=== PATIENT | male | born 1940 | race Caucasian/White ===

== ENCOUNTER 2025-04-24 10:55 | Observation (INO) | payer OTHER ==
[2025-04-24 12:46] LABS: ABSOLUTE IMMATURE GRANULOCYTES 0.04 x10^3/uL (0.0-0.031); BASOPHILS # 0.03 x10^3/uL (0.01-0.08); EOSINOPHIL % 2.3 % (0.8-7.0); EOSINOPHILS # 0.21 x10^3/uL (0.04-0.54); MCHC 32.8 g/dl (32.3-36.5); MEAN CELL VOLUME 101.0 fl (79.0-92.2); MEAN PLT VOLUME 9.6 fl (9.4-12.4); MONOCYTE # 0.84 x10^3/uL (0.30-0.82); MONOCYTE % 9.1 % (5.3-12.2); RDW 14.2 % (12.6-16.6)
[2025-04-24 12:53] LABS: INR 1.19 (0.83-1.09); PROTHROMBIN TIME (PATIENT) 13.1 SEC (9.7-13.0)
[2025-04-24 12:56] LABS: ACTIVATED PTT 25.4 SECONDS (25.2-36.5)
[2025-04-24] MEDS ORDERED: PIPERACILLIN/TAZOB 3.375 GM 3.375 GM/50 ML BAG IVPB ONE (12:59)
[2025-04-24] MEDS ORDERED: VANCOMYCIN 1 GM PREMIX (F) 1 GM/200 ML BAG ONE (12:59)
[2025-04-24] MEDS ORDERED: ACETAMINOPHEN INJECTION 100 ML ONE (12:59)
[2025-04-24 13:07] LABS: GLUCOSE,RANDOM 101.0 mg/dL (74-106); TOT PROT 7.4 g/dl (6.4-8.2)
[2025-04-24] MEDS: ACETAMINOPHEN 1000 MG/100 ML BAG IVPB ONE (13:07)
[2025-04-24 13:08] LABS: CO2 21.0 mmol/L (21-32)
[2025-04-24 13:10] LABS: ALK PHOS 78.0 U/L (40-150)
[2025-04-24 13:12] LABS: SGPT/ALT 30.0 U/L (0-55)
[2025-04-24 13:13] LABS: CREATININE 1.06 mg/dL (0.55-1.3); SGOT/AST 39.0 U/L (5-34)
[2025-04-24] MEDS: PIPERACILLIN/TAZOB 3.375 GM 3.375 GM in DEXTROSE 5%-WATER - 50 ML IVPB ONE (13:13)
[2025-04-24 13:23] LABS: ERYTHROCYTE SEDIMENTATION RATE 106 mm/hr (0-20)
[2025-04-24] MEDS: VANCOMYCIN 1,000 MG in DEXTROSE 5%-WATER - 250 ML IVPB ONE (13:40)
[2025-04-24] MEDS ORDERED: ALBUTEROL SO4 0.083% IH SOL 2.5 MG/3 ML VIAL.NEB. NEB PRN (14:41)
[2025-04-24 15:38] LABS: HCV DIAGNOSTIC IN-HOUSE W/RFLX NON-REACTIVE (NONREACTIVE); HIV INTERPRETATION NEGATIVE (NEGATIVE)
[2025-04-24] MEDS: PIPERACILLIN/TAZOB 3.375 GM 3.375 GM in DEXTROSE 5%-WATER - 50 ML IVPB SCH (18:17)
[2025-04-24] MEDS: ACETAMINOPHEN 325 MG TABLET (FP) PO PRN (18:24)
[2025-04-24 19:16] VITALS: BMI 30.4
[2025-04-24] MEDS: HEPARIN NA (PORCINE) 5,000 UNITS/ML 1ML VIAL SQ SCH (21:18)
[2025-04-24] MEDS: CARVEDILOL 6.25 MG TABLET (FP) PO SCH (21:19)
[2025-04-24] MEDS: MIRTAZAPINE 15 MG TABLET (FP) PO SCH (21:19)
[2025-04-25 08:40] LABS: ABSOLUTE IMMATURE GRANULOCYTES 0.02 x10^3/uL (0.0-0.031); BASOPHILS # 0.03 x10^3/uL (0.01-0.08); EOSINOPHIL % 5.4 % (0.8-7.0); EOSINOPHILS # 0.41 x10^3/uL (0.04-0.54); MCHC 31.7 g/dl (32.3-36.5); MEAN CELL VOLUME 100.7 fl (79.0-92.2); MEAN PLT VOLUME 9.0 fl (9.4-12.4); MONOCYTE # 1.10 x10^3/uL (0.30-0.82); MONOCYTE % 14.4 % (5.3-12.2); RDW 14.2 % (12.6-16.6)
[2025-04-25 09:05] LABS: GLUCOSE,RANDOM 88.0 mg/dL (74-106)
[2025-04-25 09:06] LABS: TOT PROT 6.1 g/dl (6.4-8.2)
[2025-04-25 09:07] LABS: CO2 24.0 mmol/L (21-32)
[2025-04-25 09:08] LABS: ALK PHOS 64.0 U/L (40-150)
[2025-04-25 09:11] LABS: SGOT/AST 24.0 U/L (5-34); SGPT/ALT 22.0 U/L (0-55)
[2025-04-25 09:25] LABS: IRON SERUM 40.0 ug/dL (50-175)
[2025-04-25] MEDS: NIFEdipine E.R. 30 MG TABLET PO SCH (09:45)
[2025-04-25] MEDS: FUROSEMIDE 40 MG TABLET (FP) PO SCH (09:45)
[2025-04-25] MEDS: PANTOPRAZOLE 20 MG TABLET PO SCH (09:45)
[2025-04-25] MEDS: LOSARTAN POTASSIUM 50 MG TABLET PO SCH (09:46)
[2025-04-25 11:08] LABS: CREATININE 1.32 mg/dL (0.55-1.3)
[2025-04-25] MEDS ORDERED: PROPOFOL 20 ML ONE ×2 (12:37→12:43)
[2025-04-25] MEDS ORDERED: LIDOCAINE HCL/PF 2% SDV 5ML VIAL ONE (12:37)
[2025-04-25] MEDS ORDERED: LIDOCAINE HCL 1%, 10 MG/ML (20ML VIAL) ONE (12:49)
[2025-04-25] MEDS: LIDOCAINE HCL 1%, 10 MG/ML (20ML VIAL) INF ONE (13:10)
[2025-04-25] MEDS ORDERED: ONDANSETRON 4 MG/2 ML VIAL IVPUSH PRN ×2 (13:39→14:24)
[2025-04-25] MEDS ORDERED: ALBUTEROL SO4 0.083% IH SOL 2.5 MG/3 ML VIAL.NEB. NEB PRN (14:24)
[2025-04-25] MEDS: LACTATED RINGERS SOLUTION 1,000 ML IV SCH ×2 (15:45→17:39)
[2025-04-25] MEDS: FLUTICASONE/UMECLIDIN/VILANTER(200-62.5-25 TRELEGY ELLIPTA) INAHLER IH SCH (15:45)
[2025-04-25] MEDS: VANCOMYCIN/WATER FOR INJ (PEG) 1,000 MG/200 ML BAG IVPB SCH (17:40)
[2025-04-25] MEDS: PIPERACILLIN/TAZOB 3.375 GM 3.375 GM in DEXTROSE 5%-WATER - 50 ML IVPB SCH (18:05)
[2025-04-25] MEDS: CARVEDILOL 6.25 MG TABLET (FP) PO SCH (23:23)
[2025-04-25] MEDS: HEPARIN NA (PORCINE) 5,000 UNITS/ML 1ML VIAL SQ SCH (23:23)
[2025-04-25] MEDS: ACETAMINOPHEN 325 MG TABLET (FP) PO PRN (23:24)
[2025-04-25] MEDS: MIRTAZAPINE 15 MG TABLET (FP) PO SCH (23:24)
[2025-04-25] MEDS: prednisoLONE ACETATE 1% OPHTH SUSP 5 ML BOTTLE OD SCH (23:25)
[2025-04-26] MEDS ORDERED: PIPERACILLIN/TAZOB 3.375 GM 3.375 GM in DEXTROSE 5%-WATER - 50 ML IVPB SCH (02:00)
[2025-04-26] MEDS: NIFEdipine E.R. 30 MG TABLET PO SCH (09:49)
[2025-04-26] MEDS: PANTOPRAZOLE 20 MG TABLET PO SCH (09:50)
[2025-04-26] MEDS: TAMSULOSIN HCL 0.4 MG CAP PO SCH (09:50)
[2025-04-26] MEDS: FUROSEMIDE 40 MG TABLET (FP) PO SCH (09:50)
[2025-04-26] MEDS: LOSARTAN POTASSIUM 50 MG TABLET PO SCH (09:50)
[2025-04-26] MEDS: FLUTICASONE/UMECLIDIN/VILANTER(200-62.5-25 TRELEGY ELLIPTA) INAHLER IH SCH (09:51)
[2025-04-26 12:22] LABS: ABSOLUTE IMMATURE GRANULOCYTES 0.03 x10^3/uL (0.0-0.031); BASOPHILS # 0.04 x10^3/uL (0.01-0.08); EOSINOPHIL % 6.7 % (0.8-7.0); EOSINOPHILS # 0.44 x10^3/uL (0.04-0.54); MCHC 32.0 g/dl (32.3-36.5); MEAN CELL VOLUME 99.7 fl (79.0-92.2); MEAN PLT VOLUME 8.8 fl (9.4-12.4); MONOCYTE # 0.92 x10^3/uL (0.30-0.82); MONOCYTE % 14.0 % (5.3-12.2); RDW 14.1 % (12.6-16.6)
[2025-04-26] MEDS: BACITRACIN ZINC 15 GM TUBE TOPICAL OINTMENT TP SCH (12:47)
[2025-04-26] MEDS: BACITRACIN ZINC 15 GM TUBE TOPICAL OINTMENT TP ONE (12:47)
[2025-04-26 13:14] LABS: GLUCOSE,RANDOM 93.0 mg/dL (74-106); TOT PROT 6.7 g/dl (6.4-8.2)
[2025-04-26 13:15] LABS: CO2 23.0 mmol/L (21-32)
[2025-04-26 13:17] LABS: ALK PHOS 70.0 U/L (40-150)
[2025-04-26 13:20] LABS: CREATININE 1.26 mg/dL (0.55-1.3); SGOT/AST 24.0 U/L (5-34); SGPT/ALT 16.0 U/L (0-55)
[2025-04-27] MEDS: IRON SUCROSE INJECTION 200 MG in SODIUM CHLORIDE 100 ML IVPB ONE (09:20)
[2025-04-27] MEDS: POLYETHYLENE GLYCOL (HEALTHYLAX) 3350 17 GM PACKET PO SCH (10:52)
[2025-04-27 14:34] VITALS: BP 120/75; PULSE 82; RESP 18; TEMP 97.7
== END 2025-04-27 18:13 | disposition home or self-care (01) ==
LOC: JER 10:55 → JERBED 14:44 → J8W 16:22
PROVIDERS: ADMIT Family Medicine; ATTEND Family Medicine
DX: L02.414 Cutaneous abscess of left upper limb (principal); L03.114 Cellulitis of left upper limb; D53.9 Nutritional anemia, unspecified; N17.9 Acute kidney failure, unspecified; I10 Essential (primary) hypertension; R73.03 Prediabetes; E78.5 Hyperlipidemia, unspecified; J45.909 Unspecified asthma, uncomplicated; N40.0 Benign prostatic hyperplasia without lower urinary tract symptoms; Z85.46 Personal history of malignant neoplasm of prostate; Z96.642 Presence of left artificial hip joint; Z79.899 Other long term (current) drug therapy; Z88.4 Allergy status to anesthetic agent
CPT/HCPCS: 10060; 36415; 76882-TC-LT; 80053; 82607; 82728; 82746; 83540; 83550; 85025; 85610; 85651; 85730; 86140; 86803; 87040; 87070; 87205; 87389; 88304-TC; 93005; 93010; 94760; 96365; 96366; 96367; 96372; 96375; 96376; 99285-25; G0378; J1756